=== PATIENT | male | born 1975 ===

== ENCOUNTER 2021-11-10 10:00 | Outpatient (CLI) | payer OTHER | END 2021-11-10 10:20 | disposition home or self-care (01) | LOC: PPH VACUNA 10:00 | PROVIDERS: ATTEND Emergency Medicine Pediatric Emergency Medicine | DX: Z23 Encounter for immunization (principal) | CPT/HCPCS: 90686; G0008 ==

== ENCOUNTER 2021-11-15 13:30 | Outpatient (CLI) | payer OTHER | END 2021-11-15 14:00 | disposition home or self-care (01) | LOC: ASH CLINIC 13:30 | DX: U07.1 COVID-19 (principal); Z23 Encounter for immunization ==